=== PATIENT | male | born 1985 | race Caucasian/White ===

== ENCOUNTER 2024-07-01 08:06 | Outpatient (CLI) | payer OTHER, SELFPAY ==
--- OUTSIDE RECORDS SUMMARY | 2024-07-02 11:31 | XMS_ITS | Clinical Summary ---
[facility] Address [address] [place] [id number] Care Team Providers Care Public Information Officer Name Role Phone Pito Prince PA-C Primary Care Provider [phone] Source Comments You are receiving this document as you are listed as the primary care provider,follow-up provider, or the patient has been referred to you for consultation.This is in compliance with the Medicare and[facility] EHR Incentive Program,which states Providers who transition their patient to another setting of careor provider of care or refers their patient to another provider of care shouldprovide summary care record for each transition of care or referral. [facility] Allergies No known active allergies Medications Medication Sig Dispensed Refills Start Date End Date Status terbinafine (LAMISIL) 1 % creamIndications:Skin lesion Apply a thin film twice daily for up to 1-2 weeks 24 g 02/21/2021 Active triamcinolone acetonide (KENALOG) 0.1 % ointmentIndications:S kin lesion Apply a thin film topically twice a day x 5-7 days and then as needed 30 g 2 02/21/2021 Active Active Problems Problem Noted Date Diagnosed Date Tobacco use disorder 05/15/2019 Pectus excavatum 05/15/2019 Resolved Problems Problem Noted Date Diagnosed Date Resolved Date Erectile dysfunction 05/15/2019 021 Immunizations Name Administration Dates Next Due Naida COVID-19 Vaccine 01/03/2021 Tdap 05/15/2019 Family History Medical History Relation Name Comments Diabetes Maternal Grandmother Relation Name Status Comments Father Alive Mother Alive Maternal Grandmother Social History Tobacco Use Types Packs/Day Years Used Date Smoking Tobacco: Every Day Cigarettes Started: 05/15/2005 Smokeless Tobacco: Never Comments:1-2 packs/week Alcohol Use Standard Drinks/Week Comments Yes 2 (1 standard drink = 0.6 oz pur e alcohol) 15 to 20/week Sex and Gender Information Value Date Recorded Sex Assigned at Not on file Gender Identity Not on file Sexual Orientation Not on file Last Filed Vital Signs Vital Sign Reading Time Taken Comments Blood Pressure 145/83 02/21/2021 9:19 AM CDT Pulse 70 02/21/2021 9:19 AM CDT Temperature 36.6 ??C (97.9 ??F) 06/13/2019 9:23 AM CD T Respiratory Rate 18 06/13/2019 9:23 AM CDT Oxygen Saturation - - Inhaled Oxygen Concentration - - Weight 70.3 kg (155 lb) 02/21/2021 9:19 AM CDT Height 177.1 cm (5' 9.72) 06/13/2019 9:23 AM CD T Body Mass Index 22.42 06/13/2019 9:23 AM CDT Plan of Treatment Health Maintenance Due Date Last Done Comments Hep C Screening (Preventive Services) 1984 Pneumococcal (1 - PCV) 1990 HepB (1) 2003 Adult Preventive Visit 05/15/2021 05/15/2019 Cholesterol 05/15/2024 05/15/2019 COVID-19 Vaccine (2 - season) 2024 01/03/2021 Influenza (#1) 2024 06/23/2021, 06/02, 08/06/2019, Additional history exists DTaP/Tdap/Td (2 - Tdap) 05/15/2029 05/15/2019 Zoster/Shingles (1 of 2) 2034 HIV Screening (Preventive Services) Completed 05/15/2019 HPV Vaccine Aged Out No longer eligi ble based on patient's age to complete this topic HepA Aged Out No longer eligi ble based on patient's age to complete this topic Hib Aged Out No longer eligi ble based on patient's age to complete this topic IPV (Polio) Aged Out No longer eligi ble based on patient's age to complete this topic MCV4 Aged Out No longer eligi ble based on patient's age to complete this topic Procedures Procedure Name Priority Date/Time Associated Diagnosis Comments HIV 1/2 AG/AB 4TH GEN Routine 05/15/2019 3:23 PM CDT Screening for HIV (human immunodeficiency virus) CHOLESTEROL, TOTAL AND HDL Routine 05/15/2019 3:23 PM CDT Routine general medical examination at a health care facility Pectus excavatum Screening for HIV (human immunodeficiency virus) from Last 3 Months or Most Recently Relevant to Health Maintenance Results * HIV 1/2 Ag/Ab 4th Generation (05/15/2019 3:23 PM CDT) HIV 1/2 Antigen/Anti body (4th generation) Negative (Non Reactive) Negative (Non Reactive) 05/15/2019 8:31 PM CDT [facility] Comment:HIV-1 p24 Antigen an d HIV-1/HIV-2 Antibody not detected Blood Venipuncture / Unknown 05/15/2019 3:23 PM CDT 05/15/2019 3:23 PM CDT Maddison Gonzales MD LAB_1 Performing Organization Address [facility] Co de Phone Number [facility] [address] [place] [address] * (ABNORMAL) Cholesterol, Total and HDL (05/15/2019 3:23 PM CDT) Cholesterol 204(H) 0 - 199 mg/dL 05/15/2019 8:11 PM CDT [facility] HDL Cholesterol 83 >=40 mg/dL 05/15/2019 8:11 PM CDT [facility] Non HDL Chol, Calculated 121 <=159 mg/dL 05/15/2019 8:11 PM CDT [facility] Blood Venipuncture / Unknown 05/15/2019 3:23 PM CDT 05/15/2019 3:23 PM CDT Maddison Gonzales MD LAB_1 Performing Organization Address [facility] Co de Phone Number [facility] [address] [place] [id number], [facility] [phone] from Last 3 Months or Most Recently Relevant to Health Maintenance Care Teams Public Information Officer Relationship Specialty Start Date End Date Pito Prince, PADhavalC [address] [place] [address] PCP - General Physician Point Of Sale Associate 02/20/21
== END 2024-07-01 08:07 | disposition home or self-care (01) ==
LOC: NFLDREF 07-02 11:25
PROVIDERS: PCP Family Medicine; Visit Provider Family Medicine
DX: Z13.1 Encounter for screening for diabetes mellitus (principal); Z13.6 Encounter for screening for cardiovascular disorders
CPT/HCPCS: 80061; 82947